=== PATIENT | female | born 1955 | race Two or more races ===

== ENCOUNTER 2022-03-10 07:45 | Day surgery (SDC) | payer OTHER ==
[~2022-03-10] VITALS: Ht 165.1 cm; Wt 93.4 kg
[2022-03-10] MEDS ORDERED: SODIUM CHLORIDE LOCK 10 ML ONE (08:27)
[2022-03-10] MEDS ORDERED: diphenhdrAMINE HCL 50 MG/1 ML VL ONE (08:28)
[2022-03-10 09:10] LABS: Basophils # (auto) 0.1 10 ^3/uL (0-0.2); Eosinophils # (auto) 0.2 10 ^3/uL (0-0.8); Eosinophils % (auto) 1.8 % (0.0-7.0); Hemoglobin 12.9 g/dL (12.2-16.2); Lymphocytes # (auto) 2.3 10 ^3/uL (0.4-5.4); Lymphocytes % (auto) 23.4 % (10.0-50.0); Mean Corpuscular Hemoglobin 29.8 pg (28.0-32.0); Mean Corpuscular Hgb Conc. 33.2 g/dL (32.0-36.0); Mean Corpuscular Volume 89.7 fL (80.0-100.0); Monocytes % (auto) 10.2 % (0.0-12.0); Neutrophils # (auto) 6.2 10 ^3/uL (1.6-8.6); Neutrophils % (auto) 63.6 % (37.0-80.0); Nucleated Red Blood Cells % 0.1 %; Red Blood Cells 4.35 10^6/uL (4.0-5.20); Red Cell Distribution Width 13.6 % (11.8-14.3); White Blood Cell 9.7 10^3/uL (4.4-10.8)
[2022-03-10 09:22] LABS: BUN/Creatinine Ratio 15.3; Potassium 3.7 mmol/L (3.5-5.1)
[2022-03-10 09:38] LABS: INR 1.04 (0.9-1.15); Partial Thromboplastin Time 25.9 sec (23.6-33.0)
[2022-03-10] MEDS: MIDAZOLAM HCL 5 MG/ML-1ML VIAL ONE ×3 (10:32→10:42)
[2022-03-10] MEDS: fentaNYL CITRATE 100 MCG/2 ML VL ONE ×4 (10:32→10:59)
[2022-03-10 11:41] VITALS: BP 124/67
== END 2022-03-10 12:00 | disposition home or self-care (01) ==
LOC: GI 07:45
PROVIDERS: ATTEND Internal Medicine Gastroenterology
DX: Z12.11 Encounter for screening for malignant neoplasm of colon (principal); D12.2 Benign neoplasm of ascending colon; D12.3 Benign neoplasm of transverse colon; K57.30 Diverticulosis of large intestine without perforation or abscess without bleeding; K64.8 Other hemorrhoids; J44.9 Chronic obstructive pulmonary disease, unspecified; Z90.89 Acquired absence of other organs; Z86.010 Personal history of colon polyps; Z98.890 Other specified postprocedural states; Z79.899 Other long term (current) drug therapy; Z87.891 Personal history of nicotine dependence
CPT/HCPCS: 36415; 45380; 80048; 85025; 85610; 85730; 88305; J1200; J2250; J3010; J7030; 99152; 99153